=== PATIENT | female | born 1965 | race Caucasian/White ===

== ENCOUNTER 2016-08-30 18:28 | Inpatient (IN) ==
[2016-08-30] MEDS ORDERED: ONDANSETRON 4 MG/2 ML VIAL IV STA (19:43)
[2016-08-30] MEDS ORDERED: ASPIRIN 325 MG TABLET PO STA (19:43)
[2016-08-30] MEDS ORDERED: ALUM/MAG/SIMETH/LIDO VISC 1:1 30 ML BOTTLE PO STA (19:43)
[2016-08-30] MEDS ORDERED: NITROGLYCERIN 2% OINT 1 INCH/GM PACK TOP STA (19:43)
[2016-08-30] MEDS ORDERED: MORPHINE 2 MG/1 ML SYRINGE IV STA (19:43)
[2016-08-30] MEDS ORDERED: METOPROLOL TARTRATE 5 MG/5 ML VIAL IV STA (19:43)
--- NOTE | 2016-08-30 19:48 | EKG Report ---
Stationary ECG Study [facility] ER Test Date: 08/30/2016 6:46:02 PM Pat Name: NICOLAS GONZALES Department: Room: Gender: F Crisis Therapist: Kit : 1965 Requested by: Miguelangel Sanchez Order Number: [id number] Reading MD: DELLA SCHMIDT Intervals [place] Rate: 80 P: 53 [place]: 147 QRS: 61 QRSD: 101 T: 85 QT: 392 QTc: 428 Interpretive Statements SINUS RHYTHM NONSPECIFIC T WAVE ABNORMALITY Electronically Signed On 08-30-16 23:31:43 MUSIC CRITIC by DELLA SCHMIDT [email or web address]
[2016-08-30] MEDS ORDERED: METOPROLOL TARTRATE 5 MG/5 ML VIAL IV ONE (19:51)
[2016-08-30] MEDS ORDERED: MORPHINE 2 MG/1 ML SYRINGE ONE (19:51)
[2016-08-30] MEDS ORDERED: ONDANSETRON 4 MG/2 ML VIAL ONE (19:51)
[2016-08-30] MEDS ORDERED: NITROGLYCERIN 2% OINT 1 INCH/GM PACK TOP ONE (19:51)
[2016-08-30] MEDS ORDERED: ALUM/MAG/SIMETH/LIDO VISC 1:1 30 ML BOTTLE PO ONE (19:52)
[2016-08-30 20:03] LABS: Basophils # 0.1 10*3/uL (0.0-0.2); Basophils % 0.4 % (0.0-0.8); Eosinophils # 0.5 10*3/uL (0.0-0.87); Eosinophils % 3.4 % (0.00-10.9); Hematocrit 41.4 VOL% (35.7-47.0); Hemoglobin 13.6 GM/DL (12.0-16.0); Immature Granulocytes % 0.3 %; Immature Granulocytes Absolute 0.04 #; Lymphocytes # 5.9 10*3/uL (1.4-4.0); Lymphocytes % 39.3 % (21.3-54.2); Mean Corpuscular HGB Conc 32.9 GM/DL (32-36); Mean Corpuscular Hemoglobin 28 PG (27-34); Mean Corpuscular Volume 86.3 FL (87-102); Mean Platelet Volume 11.2 FL (9.6-12.0); Monocytes # 1.1 10*3/uL (0.11-0.8); Monocytes % 7.5 % (1.7-12.7); Neutrophils # 7.4 10*3/uL (1.4-7.4); Neutrophils % 49.1 % (38.7-73.9); Platelet Count 604 T/CUMM (130-400); Red Cell Distribution Width 14.5 % (9.3-17.3)
[2016-08-30 20:16] LABS: D-Dimer <= 0.5 MG/L FEU
[2016-08-30 20:30] LABS: Alanine Aminotransferase 36 U/L (13-56); Albumin 4.1 G/DL (3.4-5.0); Alkaline Phosphatase 115 U/L (45-117); Aspartate Amino Transferase 28 U/L (0-37); Bilirubin,Total < 0.39 MG/DL (0.2-1.0); Blood Urea Nitrogen 17 MG/DL (7-18); Calcium 9.1 MG/DL (8.5-10.1); Glucose 158 MG/DL (74-106); Magnesium 1.9 MG/DL (1.8-2.4); Osmolality,Calculated 287.1 MOS/KG (273-304); Potassium 3.8 MMOL/L (3.5-5.1); Sodium 142 MMOL/L (136-145); Total Protein 8.4 G/DL (6.4-8.3)
[2016-08-30 20:42] LABS: Apearance,Urine CLEAR (Clear); Bilirubin,Urine Negative (Negative); Blood, Urine Negative (Negative); Glucose,Urine (UA) Negative (Negative); Ketones,Urine Negative (Negative); Nitrite,Urine Negative (Negative); Protein,Urine Negative; RBC,Urine <1 /HPF (0-4); Squamous Epithelial Cell,Urine Occasional /HPF (0-10); Urine Color Straw (Yellow); Urine Specific Gravity 1.005 (1.001-1.035); Urine Urobilinogen < 2.0 EU/DL (0.2-1.0); WBC,Urine 1 /HPF (0-6)
--- NOTE | 2016-08-30 20:43 | Emergency Department Note ---
Baldev Jackson Brittany, am scribing for, and in the presence of, Miguelangel Li MD 19:47. Guillermo Jackson Charles R, MD, personally performed the services described in this documentation, ascribed by Marichuy De Paz in my presence, and it is both accurate and complete . Arrival - Arrival Chief Complaint: Chest Pain Stated Complaint: CHEST PAINS ED Nursing Triage Note: C/O intermittent CP starting 0200 this am and has gotten progressively worse. Pt also reports Nausea, vomiting and SOB. Pt is followed by Dr. Parker. Mode of Arrival: Ambulatory Limitations: No Limitations Source: Patient, RN Notes Reviewed Time Seen by Provider: 08/30/16 19:08 - History of Present Illness HPI Narrative: Patient is a 51 y/o white female presenting to the ED with c/o chest pain with an onset of 0200 this morning. Patient describes chest pain as an intermittent dull-sharp in quality. She reports that around 1500 this evening while driving home pain onset once again, worse than this morning and more pressure-like. Patient states that pain has onset at times of rest, not so much upon exertion. Patient denies orthopnea, but reports that upon laying in bed chest pain is "like heaviness." She notes having some associated shortness of breath that is intermittent and occurring upon exertion, never at the same time as chest pain. She denies having any neck pain or near syncopal episodes with this. 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 She states that Dr. Parker informed her she might have a slight heart murmur. Patient reports that she takes Protonix everyday for Gastric Ulcer, denies any history of GI bleed from this. She has no other complaint. Onset (ago): hour(s) Consistency: intermittent Severity: moderate Severity scale (1-10): 7 Quality: sharp, dull Allergies/Adverse Reactions: Allergies Allergy/AdvReac Type Severity Reaction Status Date / Time prochlorperazine Allergy Unknown Unknown/Unable Verified 08/30/16 18:38 [From Compazine] to obtain Nutmeg AdvReac ANAPHYLAXIS Verified 08/30/16 18:38 Home Medications: Home Medications Medication Instructions Recorded Confirmed Type Pantoprazole Tab [Protonix Tab] 40 mg PO BID 08/02/16 08/02/16 History Triamterene/Hctz 37.5-25 Cap 1 capsule PO DAILY 08/02/16 08/02/16 History [Dyazide] Black Cohosh 40 mg PO DAILY 08/06/16 08/06/16 History Meloxicam [Mobic] 15 mg PO DAILY 08/06/16 08/06/16 History Tizanidine HCl 4 mg PO DAILY 08/06/16 08/06/16 History metFORMIN [Glucophage] 250 mg PO BID W/MEALS 08/06/16 08/06/16 History Review of System - Review of System 12 point system: reviewed and no additional remarkable complaints except as stated - Review of System Respiratory: Present: respiratory distress Cardiovascular: Present: chest pain Medical,Surgical,& Family Hx - Medical History Neurology: No history of: Seizures HEENT: History of: Eye Problem Endocrine: History of: Diabetes Mellitus (NIDDM) Gastrointestinal: History of: Bowel Obstruction, GI Problems (ulcer...years ago..taking protonix) Musculoskeletal: History of: Musculoskeletal Problems Hematology: History of: Blood Transfusion Reaction - Surgical History Cardiac Surgeries: Patient Denies: Cardiac Catheterization HEENT Surgeries: Surgical HX of: Tonsilectomy & Adenoidectomy Patient denies: Eye Surgery Abdominal Surgeries: Surgical HX of: Appendectomy, Cholecystectomy, EGD Reproductive Surgeries: Surgical HX of;: Hysterectomy Orthopedic Surgeries: Surgical HX of;: Orthopedic Surgery (torn labien on right shoulder) - Family History Family History: Reports;: Family Diabetes (Maternal grandmother, both parents, siblings), Family Heart Disease (grandfatehr), Family Hypertension (parents), Family Stroke (stroke, mother, grandmother) Comment Only: Family Cancer (uncle and aunt on father's side) - Social History Smoking Status: Never smoker Frequency of Alcohol Use: None Type of Drug Use: None Exam Vital Signs: Vital Signs Temperature 97 F L 08/30/16 18:38 Pulse Rate 67 08/30/16 21:43 Respiratory Rate 20 08/30/16 21:43 Blood Pressure 129/77 08/30/16 21:43 O2 Sat by Pulse Oximetry 98 08/30/16 21:43 - General General appearance: alert, in no apparent distress - Head Head exam: Present: atraumatic, normocephalic - Eye Eye exam: Present: normal appearance, PERRL, EOMI - ENT ENT exam: Present: normal oropharynx, mucous membranes moist, TM's normal bilaterally - Neck Neck exam: Present: normal inspection, full ROM, trachea midline - Chest Chest inspection: Present: normal inspection, symmetric chest wall rise - Respiratory Respiratory exam: Present: normal lung sounds bilaterally. Absent: rales, rhonchi, wheezes - Cardiovascular Cardiovascular exam: Present: regular rate, normal rhythm, normal heart sounds. Absent: murmur, rubs, gallop - Abdominal Exam Abdominal exam: Present: soft, hyperactive bowel sounds, other (epigastric fullness to palpation). Absent: distention, tenderness, normal bowel sounds - Extremities Exam Extremities exam: Present: full ROM, pedal edema (+1) - Back Exam Back exam: Present: normal inspection, full ROM - Neurological Exam Neurological exam: Present: alert, oriented X3, CN II-XII intact. Absent: motor sensory deficit - Psychiatric Psychiatric exam: Present: normal affect, normal mood - Skin Skin exam: Present: warm, dry Course - Consultations Consultation #1: Dr. Benz will mid patient for Dr. Urban Time: 22:13 Results - Labs CBC & BMP: 08/30/16 19:09 08/30/16 19:09 Lab Results: I have reviewed the patients labs Labs: Laboratory Tests 08/30/16 08/30/16 08/30/16 19:09 19:09 19:09 WBC RBC Hgb Hct MCV MCH MCHC RDW Plt Count MPV Neut % (Auto) Lymph % (Auto) [place] % (Auto) Eos % (Auto) Baso % (Auto) Neut # (Auto) Lymph # (Auto) [place] # (Auto) Eos # (Auto) Baso # (Auto) Immature Gran % Nucleated RBC % Immature Gran # Nucleated RBCs # INR 1.0 PT Patient/Control Mix 10.0 D-Dimer, Quantitative <= 0.5 Sodium 142 Potassium 3.8 Chloride 104 Carbon Dioxide 25 Anion Gap 16.8 H BUN 17 Creatinine 1.00 GFR Calculation 64 BUN/Creatinine Ratio 17.00 Glucose 158 H Calculated Osmolality 287.1 Calcium 9.1 Magnesium 1.9 Total Bilirubin < 0.39 AST 28 ALT 36 Alkaline Phosphatase 115 Troponin I B-Natriuretic Peptide 4 Total Protein 8.4 H Albumin 4.1 Globulin 4.3 H Albumin/Globulin Ratio 0.9 L Lipase 284.0 Urine Color Urine Appearance Urine pH Ur Specific [place] Urine Protein Urine Glucose (UA) Urine Ketones Urine Blood Urine Nitrate Urine Bilirubin Urine Urobilinogen Urine Leukocytes Urine RBC Urine WBC Ur Squamous Epith Cells 08/30/16 08/30/16 08/30/16 19:09 19:09 19:09 WBC 15.0 H D RBC 4.80 Hgb 13.6 Hct 41.4 MCV 86.3 L MCH 28 MCHC 32.9 RDW 14.5 Plt Count 604 H D MPV 11.2 Neut % (Auto) 49.1 Lymph % (Auto) 39.3 [place] % (Auto) 7.5 Eos % (Auto) 3.4 Baso % (Auto) 0.4 Neut # (Auto) 7.4 Lymph # (Auto) 5.9 H [place] # (Auto) 1.1 H Eos # (Auto) 0.5 Baso # (Auto) 0.1 Immature Gran % 0.3 Nucleated RBC % 0.0 Immature Gran # 0.04 Nucleated RBCs # 0.00 INR PT Patient/Control Mix D-Dimer, Quantitative Sodium Potassium Chloride Carbon Dioxide Anion Gap BUN Creatinine GFR Calculation BUN/Creatinine Ratio Glucose Calculated Osmolality Calcium Magnesium Total Bilirubin AST ALT Alkaline Phosphatase Troponin I < 0.015 B-Natriuretic Peptide Total Protein Albumin Globulin Albumin/Globulin Ratio Lipase Urine Color Straw Urine Appearance Clear Urine pH 5.0 Ur Specific [place] 1.005 Urine Protein Negative Urine Glucose (UA) Negative Urine Ketones Negative Urine Blood Negative Urine Nitrate Negative Urine Bilirubin Negative Urine Urobilinogen < 2.0 H Urine Leukocytes Negative Urine RBC <1 Urine WBC 1 Ur Squamous Epith Cells Occasional - Diagnostic Findings Procedure: Chest x-ray: report reviewed by me (Minimal patchy right basilar opacities, may represent atelectasis although developing infectious/ inflammatory infiltrates are not excluded.) Disposition Clinical Impression: Atypical chest pain Case discussed with: patient, patient's family Disposition: Still a Patient Condition: Stable Time of Disposition: 22:13
--- NOTE | 2016-08-30 21:09 | XRay Report ---
Exam: XR chest 1V portable Indication: Chest pain Comparison study: None Findings: The heart, mediastinum, and bony structures are within normal limits. Elevation of left hemidiaphragm is noted. There is also minimal opacity within the right lung base, which is nonspecific. There is no pneumothorax or pleural effusion identified. Impression: Minimal patchy right basilar opacities may represent atelectasis although developing infectious/inflammatory infiltrates are not excluded. PROCEDURE INTERPRETED AT [facility] DEPARTMENT OF RADIOLOGY Final Report Signed by: Jamal Boykin
[2016-08-30] MEDS ORDERED: MAGNESIUM SULF RIDER 4 GM in PREMIX 1 EACH IV PRN (23:17)
[2016-08-30] MEDS ORDERED: MAGNESIUM SULF RIDER 2 GM in PREMIX 1 EACH IV PRN (23:17)
[2016-08-30] MEDS ORDERED: ONDANSETRON 4 MG/2 ML VIAL IV PRN (23:17)
[2016-08-30] MEDS ORDERED: POTASSIUM CHLORIDE 20 MEQ TABLET PO PRN (23:17)
[2016-08-30] MEDS ORDERED: LACTULOSE 20 GM/30 ML UDCUP PO PRN (23:17)
[2016-08-30] MEDS ORDERED: MORPHINE 2 MG/1 ML SYRINGE IV PRN (23:17)
[2016-08-30] MEDS: ENOXAPARIN 100 MG/ML SYRINGE SUBCUT SCH (23:37)
[2016-08-30] MEDS: SODIUM CHLORIDE 0.9% 1,000 ML IV SCH (23:38)
[2016-08-31] MEDS: NITROGLYCERIN 2% OINT 1 INCH/GM PACK TOP SCH ×4 (01:40→18:10)
[2016-08-31 03:41] LABS: Basophils # 0.1 10*3/uL (0.0-0.2); Basophils % 0.4 % (0.0-0.8); Eosinophils # 0.4 10*3/uL (0.0-0.87); Eosinophils % 2.9 % (0.00-10.9); Hematocrit 40.5 VOL% (35.7-47.0); Immature Granulocytes % 0.2 %; Immature Granulocytes Absolute 0.02 #; Lymphocytes # 5.3 10*3/uL (1.4-4.0); Lymphocytes % 42.4 % (21.3-54.2); Mean Corpuscular HGB Conc 32.1 GM/DL (32-36); Mean Corpuscular Hemoglobin 28 PG (27-34); Mean Corpuscular Volume 87.3 FL (87-102); Mean Platelet Volume 13.1 FL (9.6-12.0); Monocytes # 0.9 10*3/uL (0.11-0.8); Monocytes % 7.5 % (1.7-12.7); Neutrophils # 5.8 10*3/uL (1.4-7.4); Neutrophils % 46.6 % (38.7-73.9); Platelet Count 308 T/CUMM (130-400); Red Blood Count 4.64 MC/CUMM (3.8-5.5); Red Cell Distribution Width 14.9 % (9.3-17.3); White Blood Count 12.5 T/CUMM (4-12)
[2016-08-31 04:26] LABS: Bilirubin,Total 0.9 MG/DL (0.2-1.0); Calcium 9.3 MG/DL (8.5-10.1); Total Protein 7.4 G/DL (6.4-8.3)
[2016-08-31 04:27] LABS: Osmolality,Calculated 284.1 MOS/KG (273-304); Potassium 4.6 MMOL/L (3.5-5.1); Risk Ratio 4.21; Thyroid Stimulating Hormone 2.85 uIU/ml (0.358-3.74); VLDL CHOLESTEROL 23.4 MG/DL
--- NOTE | 2016-08-31 07:46 | XRay Report ---
XR chest 1V portable Indication: Shortness of breath Comparison: 30 August 2016 Findings: The heart and mediastinum are stable in size and configuration. Left hemidiaphragm is elevated, similar to previous exam The pulmonary vascularity is normal in caliber. No lung infiltrates, effusions, pneumothorax or other abnormality is demonstrated. Impression: No acute findings are significant changes. PROCEDURE INTERPRETED AT [facility] DEPARTMENT OF RADIOLOGY Final Report Signed by: Dr. Rex Green
[2016-08-31 08:52] LABS: Alanine Aminotransferase 33 U/L (13-56); Albumin 3.6 G/DL (3.4-5.0); Alkaline Phosphatase 100 U/L (45-117); Amylase 48 U/L (25-115); Aspartate Amino Transferase 21 U/L (0-37); Bilirubin,Direct 0.1 MG/DL (0.0-0.20); Bilirubin,Indirect 0.3 MG/DL (0.0-1.0); Bilirubin,Total < 0.39 MG/DL (0.2-1.0); Total Protein 6.7 G/DL (6.4-8.3)
[2016-08-31] MEDS ORDERED: PANTOPRAZOLE 40 MG TABLET PO SCH (09:00)
[2016-08-31] MEDS ORDERED: ASPIRIN EC 81 MG TABLET PO SCH (09:00)
--- NOTE | 2016-08-31 09:12 | EKG Report ---
Stationary ECG Study [facility] ER Test Date: 08/30/2016 10:57:20 PM Pat Name: NICOLAS GONZALES Department: Room: 295 Gender: F Licensed Weigher: : 1965 Requested by: Miguelangel Sanchez Order Number: [id number] Reading MD: DELLA SCHMIDT Intervals [place] Rate: 68 P: 37 [place]: 155 QRS: 81 QRSD: 99 T: 63 QT: 430 QTc: 447 Interpretive Statements SINUS RHYTHM NONSPECIFIC T-WAVE ABNORMALITY Electronically Signed On 08-31-16 22:21:27 TAFFY CANDY MAKER by DELLA SCHMIDT [email or web address]
--- NOTE | 2016-08-31 10:09 | Gastrointestinal Consult Note ---
Assessment and Plan (1) Atypical chest pain Status: Acute Assessment and plan: The patient states that she does not feel that this is necessarily GI related as it is different from her previous esophagitis type pain. It has partially responded to nitroglycerin and this may represent esophageal spasm versus true coronary artery disease or unstable angina or perhaps even reflux that we might be able to see if there is esophagitis present. We will proceed with upper endoscopy as this is certainly less invasive than cardiac catheterization. The patient points out that she did have some arrhythmias when she had her colonoscopy recently and that this may be related to her current complaints. She is on telemetry monitoring now but may need a cardiac event monitor if nothing can be found from a GI standpoint and her catheterization is negative. Current Visit: Yes (2) Rizvi's esophagus determined by biopsy Status: Acute Assessment and plan: While this is been seen on previous upper endoscopy back in July 2013 it was not seen on follow-up endoscopy March 2014. We will certainly look for Rizvi's again during today's exam. If present she will need repeat upper endoscopy in 3 years to look for further dysplasia. Current Visit: Yes (3) Esophagitis determined by biopsy Status: Acute Assessment and plan: This patient has had a history of atypical chest pain sometimes up to a 4 out of 10 in intensity in the past but states this was normally a burning for her and not necessarily sharp stabbing. We will look for further esophagitis as this is been found on prior endoscopies. She is only on Protonix once daily taken in the morning time despite my recommendations take this prior to supper. We will leave her prescription to use this twice daily at least for the next several months. If she redevelops atypical chest pain off of the twice daily dosing we can certainly continue this indefinitely. Current Visit: Yes (4) Personal history of colonic polyps Status: Acute Assessment and plan: The patient does have a history of hyperplastic polyps discovered on her most recent colonoscopy July 2016 one month ago, she does not need a repeat colonoscopy until July 2026. Current Visit: Yes History of Present Illness Chief complaint: Atypical chest pain, different from reflux induced pain by report History of present illness: Ms. Hampton is a 51 year old female who has been seen by me on multiple occasions since March 2014. Mai does have a history of atypical chest pain which is previously required treatment with Protonix 40 mg twice daily. She has since cut this back to 40 mg in the morning time. She is previously undergone upper endoscopy back in July 2013 demonstrating a 1.5 cm ulcer in the prepyloric regions. She was noted to have Rizvi's esophagus at that time and has been treated with proton pump inhibition since then, a repeat upper endoscopy done in 03/12/14 demonstrated complete healing of this ulcer no Helicobacter pylori and Rizvi's was not present at that time indicating a reversal of this condition. She is always had mildly elevated liver function tests and had previously undergone cholecystectomy by Dr. Rosario on 08/22/13, this was followed by a intraoperative cholangiogram which demonstrated normal flow into the duodenum and did not demonstrate any residual stones--the pathology on this was chronic cholecystitis. Mai also undergone a colonoscopy as recently as 08/06/16 with a single rectal polyp that was removed by hot biopsy that proved to be hyperplastic. The patient will not require repeat colonoscopy for 10 years. The patient presented this admission with an atypical chest pain that has been going on for several days she does have a family history of coronary artery disease and is a previous smoker but discontinued this in 1986. She mentions that this pain is a bit different from the previous atypical chest pain insofar as has more of a stabbing sensation as opposed to burning. She states that it exacerbates and remits sometimes up to 10 out of 10 in intensity and has been improved with the use of nitroglycerin. At present it is not hurting her at all. She states that this has not previously been associated with increase in exercise but more recently with her last Suleiman class she did notice a correlation with worsening "indigestion". The patient's white blood cell count was noted to be 15 on admission and this is dropped back to 12.5 today. Her hematocrit is 40.5 with a hemoglobin of 13.0. Liver function tests at this time are completely within normal limits. Troponin levels appear completely negative as well. Because the weekend is coming up, we will take the patient immediately to endoscopy to answer the question as to whether there is worsened esophagitis from prior scope in March 2014 to explain her current complaints. Home Medications Medication Instructions Recorded Confirmed Type Pantoprazole Tab [Protonix Tab] 40 mg PO BID 08/02/16 08/30/16 History Triamterene/Hctz 37.5-25 Cap 1 capsule PO DAILY 08/02/16 08/30/16 History [Dyazide] Black Cohosh 540 mg PO DAILY 08/06/16 08/30/16 History Meloxicam [Mobic] 15 mg PO DAILY W/BREAKFAST 08/06/16 08/30/16 History Tizanidine HCl 4 mg PO BEDTIME 08/06/16 08/30/16 History metFORMIN [Glucophage] 500 mg PO BID W/MEALS 08/06/16 08/30/16 History Aspirin [Ecotrin] 81 mg PO DAILY 08/30/16 08/30/16 History Losartan [Cozaar] 25 mg PO DAILY 08/30/16 08/30/16 History Simvastatin 40 mg PO DAILY@1700 08/30/16 08/30/16 History cycloSPORINE OPH EMUL [Restasis] 1 drop BOTH EYES BID 08/30/16 08/30/16 History Allergies Allergy/AdvReac Type Severity Reaction Status Date / Time prochlorperazine Allergy Unknown Unknown/Unable Verified 08/30/16 18:38 [From Compazine] to obtain Nutmeg AdvReac ANAPHYLAXIS Verified 08/30/16 18:38 Medical,Surgical,& Family Hx - Medical History Neurology: No history of: Seizures HEENT: History of: Eye Problem Endocrine: History of: Diabetes Mellitus (NIDDM) Gastrointestinal: History of: Bowel Obstruction, GI Problems (ulcer...years ago..taking protonix) Musculoskeletal: History of: Musculoskeletal Problems Hematology: History of: Blood Transfusion Reaction - Surgical History Cardiac Surgeries: Patient Denies: Cardiac Catheterization HEENT Surgeries: Surgical HX of: Tonsilectomy & Adenoidectomy Patient denies: Eye Surgery Abdominal Surgeries: Surgical HX of: Appendectomy, Cholecystectomy, EGD Reproductive Surgeries: Surgical HX of;: Hysterectomy Orthopedic Surgeries: Surgical HX of;: Orthopedic Surgery (torn labien on right shoulder) - Family History Family History: Reports;: Family Diabetes (Maternal grandmother, both parents, siblings), Family Heart Disease (grandfatehr), Family Hypertension (parents), Family Stroke (stroke, mother, grandmother) Comment Only: Family Cancer (uncle and aunt on father's side) - Social History Smoking Status: Former smoker Frequency of Alcohol Use: None Type of Drug Use: None Review of systems: Constitutional: Denies fever, chills, mild nausea but no vomiting Eyes: Denies dry eyes, and scleral icterus HENT: Denies headaches Cardiovascular: Patient does complain of some recent acute chest pain but no claudication Respiratory: Denies shortness of breath, wheezing, and difficulty breathing, denies cough Gastrointestinal: As noted in the HPI Genitourinary: Denies dysuria and hematuria Neurologic: Denies vision loss, and loss of sensation Musculoskeletal: Denies joint swelling, joint stiffness, and muscular weakness Psychiatric: Denies depression and mil symptoms Heme-Lymph: Denies easy bruising, lymph node enlargement or tenderness, night sweats, excessive bleeding Allergies-immunologic: Denies pruritus and rhinorrhea Exam - Constitutional Vitals: Period Temp Pulse Resp BP Sys/Cook Pulse Ox Last 24 Hr 97.2 F-98.8 F 65-77 16-18 104-124/57-71 94-95 General appearance: no acute distress - Head Head exam: Present: normocephalic, atraumatic - Eye Eye exam: Present: EOMI Pupils: Present: YODIT - Respiratory Respiratory exam: Present: clear to auscultation bilaterally - Cardiovascular Cardiovascular exam: Present: regular rate and rhythm, systolic murmur - GI/Abdominal GI/Abdominal exam: Present: normal bowel sounds, soft. Absent: distended, guarding, tenderness, rebound - Extremities Exam Extremities exam: Absent: edema - Neurological Exam Neurological exam: Present: alert, oriented X3, CN II-XII intact. Absent: motor sensory deficit - Psychiatric Psychiatric exam: Present: normal affect, normal mood - Skin Skin exam: Present: warm Results - Labs CBC & BMP: 08/31/16 02:10 08/31/16 02:10
[2016-08-31] MEDS ORDERED: LIDOCAINE 100 MG/5 ML SYRINGE ONE (10:37)
[2016-08-31] MEDS ORDERED: PROPOFOL 200 MG/20 ML VIAL IV ONE (10:37)
--- NOTE | 2016-08-31 11:00 | Operative Note ---
Date of procedure: 08/31/16 Pre-op diagnosis: Atypical chest pain, history of Rizvi's, prior ulcers, positive Mobic use Post-op diagnosis: other (9 mm gastric ulcer thought secondary to Mobic use. There was a large amount of retained vegetable matter in the stomach consistent with phytobezoar/gastroparesis. 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 Frantz Viera MD INDICATIONS: This is a patient who has a prior history of atypical chest pain , esophagitis, and Rizvi's esophagus--who has been having several days of a different character to the pain, improvement on nitroglycerin, upper endoscopy to look for further Rizvi's/pill esophagitis/esophagitis. The prior H&P was reviewed and interrim changes are as noted: No change from GI consultation today ENDOSCOPIST: Murphy Polanco MD ENDOSCOPE: Olympus Video 100 System upper endoscope ASA CLASS: 3 EXAM: CV: regular rate and rhythm respiratory: Clear without wheezes abdominal: active bowel sounds MEDICATION: Per nursing anesthesia protocol, see their notes PROCEDURE: After discussion of the potential risks and benefits of upper endoscopy, the informed consent was obtained. The patient was then placed in the left lateral decubitus position where sedation was achieved as noted above. Esophageal intubation was performed without difficulty, and the endoscope was advanced through the esophagus, stomach and duodenum. A slow withdrawal was then performed with retroflexion in the stomach for careful inspection of the incisura angularis, fundus and cardia. The scope was then returned to a neutral position and withdrawn through the esophagus. The patient tolerated the procedure well and without complication. BIOPSIES: gastric antrum/body PHOTOGRAPHS: Obtained FINDINGS: Hypopharynx and Larynx: Normal Esohagoscopy Upper and middle thirds: Normal Lower third large pulsion diverticulum noted Esophogastric junctions: There did appear to be a 2 cm tongue of Rizvi 's here that was biopsied. Gastroscopy: Cardia/Fundus: 1 cm hiatal hernia, large amount of retained vegetable matter consistent with phytobezoar Body: A large amount of retained food in the stomach consistent with phytobezoar, mild surrounding stasis gastritis, biopsied Antrum and pylorus there was a prepyloric gastric ulcer 9 mm in size, margins biopsied, a large amount of retained food was noted here making it impossible to find the pyloric channel Duodenoscopy: Bulb not seen Second and third portions: Not seen IMPRESSION: 9 mm gastric ulcer thought secondary to Mobic use. There was a large amount of retained vegetable matter in the stomach consistent with phytobezoar/gastroparesis. 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 RECOMMENDATIONS: Follow up for biopsy results in 1-2 weeks by phone [phone] Continue anti-gastroesophageal reflux measures (avoid carbonated and acidic beverages, avoid eating within 2 hours of bedtime, avoid tight fitting clothing , and elevate the front bed posts 6 inches prior to sleeping. Stop Mobic Resume use of Protonix 40 mg twice daily We will schedule for a gastric emptying study tomorrow to look and see if there is quantifiable evidence of poor stomach emptying. Murphy Polanco MD COPY TO: Dr. Frantz Viera MD Anesthesia: MAC Surgeon / Physician: Murphy Polacno Estimated blood loss: minimal Specimens: other (Gastric antrum/body/ulcer margin) Condition: stable Disposition: post procedure unit (G.I. Suite) Results - Labs CBC & BMP: 08/31/16 02:10 08/31/16 02:10 Discharge Plan - Discharge Medications No Action Triamterene/Hctz 37.5-25 Cap [Dyazide] 1 capsule PO DAILY metFORMIN [Glucophage] 500 mg PO BID W/MEALS Meloxicam [Mobic] 15 mg PO DAILY W/BREAKFAST Tizanidine HCl 4 mg PO BEDTIME Aspirin [Ecotrin] 81 mg PO DAILY Losartan [Cozaar] 25 mg PO DAILY Simvastatin 40 mg PO DAILY@1700 cycloSPORINE OPH EMUL [Restasis] 1 drop BOTH EYES BID Pantoprazole Tab [Protonix Tab] 40 mg PO BID Black Cohosh 540 mg PO DAILY - Follow Up or Referral - Forms/Instructions
--- NOTE | 2016-08-31 11:28 | Anesthesia ---
Anesthesia Post OP - Post Ansesthetic Evaluation Patient seen in post op: Yes Resp: within normal limits CV: within normal limits Mental: within normal limits Temp: within normal limits [id number]: within normal limits Nausea and Vomiting: within normal limits Pain: within normal limits
--- NOTE | 2016-08-31 11:42 | Cardiology History & Physical ---
Manuel, Rhiannon Calvillo RN, am scribing for, and in the presence of, Wilton Viera MD 11:39. Assessment and Plan (1) Atypical chest pain Status: Acute Assessment and plan: 59-year-old female without known coronary artery disease presents for further evaluation of chest pain. She has a history of diabetes, hyperlipidemia , hypertension, and gastric ulcer. She is also a former smoker, reports that she quit in 1996. -The pain is not typical for cardiac origin. I suspect GI. Will get GI consult. -Blood pressure is well controlled. Continue current regimen -Hyperlipidemia, continue statin. -Has diabetes, sugars are controlled. -I would hold off adding aspirin, until acute GI pathology ruled out -dvt ppx. ppi Current Visit: Yes (2) Hypertension Status: Chronic Current Visit: Yes (3) Hyperlipidemia Status: Chronic Current Visit: Yes (4) Diabetes Status: Chronic Current Visit: Yes (5) Former smoker Status: Chronic Current Visit: Yes History of Present Illness Chief complaint: Chest pain History of present illness: Ms. Hampton is a 51 year old female without known coronary artery disease, routinely followed by Dr. Parker. Her primary care provider is Dr. Montgomery. She presented to the ER yesterday for further evaluation of chest pain. She has resector significant for diabetes, hyperlipidemia, hypertension, family history of coronary artery disease and former smoker (reports that she quit in 1986). She has a past medical history of gastric ulcer approximately 3 years ago. She has no significant cardiac surgical history. She has never had a heart catheterization. She saw Dr. Urban for the first time Saturday for evaluation of chest pain. She underwent echo, stress test and EKG at that time. After reviewing [facility] records, her echo revealed normal LV size and function with an ejection fraction of 65%, grade 1 diastolic dysfunction, mild LVH, mild MR, trace pulmonic regurgitation and mild TR. Her cardiac stress test revealed a normal stress EKG. Upsloping ST depression was noted in lead 2 , lead 3, aVF and V6 with a rapid normalization during recovery. Dr. Parker started patient on Cozaar and Lipitor on Saturday. Patient was in her usual state of health until yesterday when she began to experience nonradiating chest discomfort around 3 AM. She reports that this woke her up from sleep. This lasted a couple of hours. She describes this pain as a pressure, squeezing type pain. After this pain resolved, she decided to go on to work. She did not have any further symptoms until around 3 PM when she began to develop an aching chest pain. She reports that this lasted approximately 1 hour and was then resolved. She is unable to identify any aggravating or alleviating factors at this time. She reports that she was resting when this pain started and was not made worse with activity. Her chest pain is also associated with nausea. She denies shortness of breath, palpitations, and lightheadedness. Around 6 PM, on her way home from work she developed chest pain again. This increasingly got worse since she reported to the ER at that time. She received nitro in the ER. She reports that this made her chest pain a little better. The patient was admitted to cardiology's service and housed on telemetry for further evaluation. Patient denies fever, chills, cough, chest pain with inspiration, abdominal pain, melena, chest pain that is worse after eating, orthopnea, PND, dysuria and lower extremity edema. Of note, patient does report that she has noticed that she has been more short of breath this week. She tells me that she has noticed this mostly while she is at work walking around the hospital. She also tells me that she attended a [employer] exercise class on Saturday and she did not experience any chest discomfort or shortness of breath during that class. Patient was seen and examined on telemetry. She has currently in no acute distress and not requiring oxygen. She reports that she is currently chest pain free and not experiencing shortness of breath. Her troponin has been negative 3 checks. Her EKG does not reveal any acute findings and is unchanged from previous EKG. Her white blood cell count is noted to be 12.5 with a neutrophil percentage of 13.1. Her chest x-ray revealed minimal patchy right basilar opacities and developing infectious infiltrates could not be excluded. She is afrebrile and without cough and chills. Will consult gi at this time for further evaluation of patient's discomfort. Will keep patient NPO until GI sees patient. Home Medications Medication Instructions Recorded Confirmed Type Pantoprazole Tab [Protonix Tab] 40 mg PO BID 08/02/16 08/30/16 History Triamterene/Hctz 37.5-25 Cap 1 capsule PO DAILY 08/02/16 08/30/16 History [Dyazide] Black Cohosh 540 mg PO DAILY 08/06/16 08/30/16 History Meloxicam [Mobic] 15 mg PO DAILY W/BREAKFAST 08/06/16 08/30/16 History Tizanidine HCl 4 mg PO BEDTIME 08/06/16 08/30/16 History metFORMIN [Glucophage] 500 mg PO BID W/MEALS 08/06/16 08/30/16 History Aspirin [Ecotrin] 81 mg PO DAILY 08/30/16 08/30/16 History Losartan [Cozaar] 25 mg PO DAILY 08/30/16 08/30/16 History Simvastatin 40 mg PO DAILY@1700 08/30/16 08/30/16 History cycloSPORINE OPH EMUL [Restasis] 1 drop BOTH EYES BID 08/30/16 08/30/16 History Allergies Allergy/AdvReac Type Severity Reaction Status Date / Time prochlorperazine Allergy Unknown Unknown/Unable Verified 08/30/16 18:38 [From Compazine] to obtain Nutmeg AdvReac ANAPHYLAXIS Verified 08/30/16 18:38 12 point system: reviewed and no additional remarkable complaints except as stated - Constitutional Constitutional: Present: fatigue. Absent: chills, excessive sweating, fever(s) , frequent falls, headache(s), malaise, night sweats, weakness, weight gain, weight loss - EENT Nose, mouth and throat: Absent: headache(s), hoarseness, sinus pressure, sore throat - Cardiovascular Cardiovascular: Present: as per HPI, chest pain at rest, dyspnea on exertion. Absent: claudication, diaphoresis, edema, radiating jaw, neck or arm pain, lightheadedness, orthopnea, palpitations, PND - Respiratory Respiratory: Present: dyspnea on exertion. Absent: cough, wheezing, snoring, pain on inspiration, change in phlegm color - Gastrointestinal Gastrointestinal: Present: heartburn, nausea. Absent: abdominal pain, change in bowel habits, coffee ground emesis, diarrhea, hematemesis, hematochezia, loose stools, melena, vomiting - Genitourinary Genitourinary: Absent: dysuria, flank pain, hematuria, urinary frequency, urinary hesitancy - Neurological Neurological: Absent: disequilibrium, dizziness, frequent falls, headache(s), numbness, syncope - Psychiatric Psychiatric: Absent: anxiety, depression, panic attacks - Hematologic/Lymphatic Hematologic/Lymphatic: Absent: easy bleeding, easy bruising, lymphadenopathy Medical,Surgical,& Family Hx - Medical History Cardio: History of: Hypertension, Valvular Heart Disease (Mild MR) No history of: CAD Neurology: No history of: Seizures, TIA Endocrine: History of: Diabetes Mellitus (NIDDM), Dyslipidemia Gastrointestinal: History of: GI Problems (Gastric ulcer approximately 3 years ago) Musculoskeletal: History of: Musculoskeletal Problems - Surgical History Cardiac Surgeries: Patient Denies: Cardiac Catheterization, Cardiac Surgery HEENT Surgeries: Surgical HX of: Tonsilectomy & Adenoidectomy Abdominal Surgeries: Surgical HX of: Appendectomy, Cholecystectomy, EGD Reproductive Surgeries: Surgical HX of;: Hysterectomy Orthopedic Surgeries: Surgical HX of;: Orthopedic Surgery (torn labien on right shoulder) - Family History Family History: Reports;: Family Diabetes (Maternal grandmother, both parents, siblings), Family Heart Disease (Grandfather), Family Hypertension (parents), Family Stroke (stroke, mother, grandmother) - Social History Smoking Status: Former smoker (Reports that she quit in 1986) Frequency of Alcohol Use: None Type of Drug Use: None Cardiology Physical Exam - Constitutional Vitals: Vital Signs Temp Pulse Resp BP Pulse Ox 97.2 F L 65 18 104/57 94 L 08/31/16 04:00 08/31/16 04:00 08/31/16 04:00 08/31/16 04:00 08/31/16 04:00 Intake and Output 08/30/16 08/31/16 08/31/16 22:59 06:59 14:59 Output Total 225 / 225 Balance -225 / -225 Output: Urine 225 / 225 Other: Voiding Method Toilet # Voids 3 Weight 166 lb General appearance: no acute distress, over weight - Head Head exam: Present: normal inspection, normocephalic, atraumatic - Eye Pupils: Present: YODIT. Absent: constricted, dilated, fixed, irregular, unequal - Neck Neck exam: Present: normal inspection. Absent: lymphadenopathy, tenderness, thyromegaly - Respiratory Respiratory exam: Present: clear to auscultation bilaterally. Absent: accessory muscle use, chest wall tenderness, rales, rhonchi, stridor, wheezes - Cardiovascular Cardiovascular exam: Present: regular rate and rhythm, systolic murmur. Absent : carotid bruit, gallop, rubs - GI/Abdominal GI/Abdominal exam: Present: normal bowel sounds, soft. Absent: distended, firm , mass, tenderness - Extremities Exam Extremities exam: Present: normal inspection, normal capillary refill, other ( Normal upper and lower extremity pulses). Absent: calf tenderness, edema - Neurological Exam Neurological exam: Present: alert, oriented X3, normal gait - Psychiatric Psychiatric exam: Present: normal affect, normal mood. Absent: agitated, anxious, depressed - Skin Skin exam: Present: normal color, warm, dry Result/EKG - Labs CBC & BMP: 08/31/16 02:10 08/31/16 02:10 Lab Results: I have reviewed the past 24 hour labs Labs: Laboratory Results - last 24 hr 08/30/16 08/31/16 08/31/16 23:15 02:10 02:10 WBC 12.5 H RBC 4.64 Hgb 13.0 Hct 40.5 MCV 87.3 MCH 28 MCHC 32.1 RDW 14.9 Plt Count 308 D MPV 13.1 H Neut % (Auto) 46.6 Lymph % (Auto) 42.4 [place] % (Auto) 7.5 Eos % (Auto) 2.9 Baso % (Auto) 0.4 Neut # (Auto) 5.8 Lymph # (Auto) 5.3 H [place] # (Auto) 0.9 H Eos # (Auto) 0.4 Baso # (Auto) 0.1 Immature Gran % 0.2 Nucleated RBC % 0.0 Immature Gran # 0.02 Nucleated RBCs # 0.00 Sodium Potassium Chloride Carbon Dioxide Anion Gap BUN Creatinine GFR Calculation BUN/Creatinine Ratio Glucose Calculated Osmolality Calcium Magnesium Total Bilirubin AST ALT Alkaline Phosphatase Troponin I < 0.015 B-Natriuretic Peptide Total Protein Albumin Globulin Albumin/Globulin Ratio Triglycerides Cholesterol LDL Cholesterol VLDL Cholesterol HDL Cholesterol Heart Disease Risk Ratio Free T4 1.27 TSH 3rd Generation 08/31/16 08/31/16 02:10 02:10 WBC RBC Hgb Hct MCV MCH MCHC RDW Plt Count MPV Neut % (Auto) Lymph % (Auto) [place] % (Auto) Eos % (Auto) Baso % (Auto) Neut # (Auto) Lymph # (Auto) [place] # (Auto) Eos # (Auto) Baso # (Auto) Immature Gran % Nucleated RBC % Immature Gran # Nucleated RBCs # Sodium 142 Potassium 4.6 Chloride 106 Carbon Dioxide 24 Anion Gap 16.6 H BUN 16 Creatinine 0.80 GFR Calculation 84 BUN/Creatinine Ratio 20.00 Glucose 121 H Calculated Osmolality 284.1 Calcium 9.3 Magnesium 2.0 Total Bilirubin 0.90 AST 23 ALT 33 Alkaline Phosphatase 110 Troponin I B-Natriuretic Peptide < 2 L Total Protein 7.4 Albumin 4.0 Globulin 3.4 Albumin/Globulin Ratio 1.1 Triglycerides 117 Cholesterol 202 H LDL Cholesterol 128.0 VLDL Cholesterol 23.4 HDL Cholesterol 48 Heart Disease Risk Ratio 4.21 Free T4 TSH 3rd Generation 2.850 - EKG EKG results: interpreted by me Maximiliano Jackson Attila, MD, personally performed the services described in this documentation, ascribed by Rhiannon Calvillo RN in my presence, and it is both accurate and complete 141 .
[2016-08-31] MEDS: TRIAMTERENE/HCTZ 37.5-25 MG CAPSULE PO SCH (12:56)
[2016-08-31] MEDS: LOSARTAN 25 MG TABLET PO SCH (12:57)
[2016-08-31] MEDS: METOPROLOL TARTRATE 25 MG TABLET PO SCH ×2 (12:57→21:06)
[2016-08-31] MEDS: cycloSPORINE OPH EMUL 1 VIAL BOTH EYES SCH ×2 (12:57→21:03)
[2016-08-31] MEDS: metFORMIN 500 MG TABLET PO SCH ×2 (12:57→18:10)
[2016-08-31] MEDS: PANTOPRAZOLE 40 MG TABLET PO SCH ×3 (12:57→20:57)
[2016-08-31] MEDS: ENOXAPARIN 100 MG/ML SYRINGE SUBCUT SCH (13:06)
[2016-08-31] MEDS ORDERED: SIMVASTATIN 40 MG TABLET PO SCH (17:00)
[2016-08-31] MEDS ORDERED: tiZANidine 4 MG TABLET PO SCH (21:00)
[2016-08-31] MEDS: SODIUM CHLORIDE 0.9% 1,000 ML IV SCH (21:06)
[2016-09-01] MEDS: NITROGLYCERIN 2% OINT 1 INCH/GM PACK TOP SCH ×2 (01:15→13:27)
[2016-09-01] MEDS ORDERED: ENOXAPARIN 40 MG/0.4 ML SYRINGE SUBCUT SCH (09:00)
--- NOTE | 2016-09-01 12:26 | Nuclear Medicine Report ---
Exam: Nuclear medicine gastric emptying study Date: September 01, 2016 Comparison: None Reason: Large retained food on EGD, prepyloric ulcer Technique: The patient was orally administered 500 microcuries of technetium 99m sulfur colloid orally in a scrambled egg sandwich. Images of the stomach were then acquired over 236 minutes, and gastric emptying time was calculated. Findings: Linear fit T 1/2 is 175.29 minutes, and raw data T 1/2 is 176.87 minutes. Gastric emptying at 236 minutes is 67% (Normal greater than 90%). Impression: Findings are consistent with delayed gastric emptying. PROCEDURE INTERPRETED AT [facility] DEPARTMENT OF RADIOLOGY Final Report Signed by: Dr. Ayo Bell
[2016-09-01] MEDS: TRIAMTERENE/HCTZ 37.5-25 MG CAPSULE PO SCH (13:28)
[2016-09-01] MEDS: PANTOPRAZOLE 40 MG TABLET PO SCH (13:29)
[2016-09-01] MEDS: METOPROLOL TARTRATE 25 MG TABLET PO SCH (13:29)
[2016-09-01] MEDS: metFORMIN 500 MG TABLET PO SCH (13:29)
[2016-09-01] MEDS: LOSARTAN 25 MG TABLET PO SCH (13:29)
[2016-09-01] MEDS: cycloSPORINE OPH EMUL 1 VIAL BOTH EYES SCH (13:29)
--- NOTE | 2016-09-01 14:09 | Cardiology Progress Note ---
Assessment and Plan (1) Atypical chest pain Status: Acute Assessment and plan: 59-year-old female without known coronary artery disease presents for further evaluation of chest pain. She has a history of diabetes, hyperlipidemia , hypertension, and gastric ulcer. She is also a former smoker, reports that she quit in 1996. Gastric ulcer, delayed gastric emptying. -Mobic was stopped -Will resume ASA 81mg qd when GI issues allow -Blood pressure is well controlled. Continue current regimen -Hyperlipidemia, continue statin. -Has diabetes, sugars are controlled. -Discharge home today if no further inpatient GI workup is needed Current Visit: Yes (2) Hypertension Status: Chronic Current Visit: Yes (3) Hyperlipidemia Status: Chronic Current Visit: Yes (4) Diabetes Status: Chronic Current Visit: Yes (5) Former smoker Status: Chronic Current Visit: Yes Cardiology - PN: Subj Interval history: EGD showed gastric ulcer. Also, esophageal disorder. Delayed gastric emptying. Exam (Progress Note) - Constitutional Vitals: Period Temp Pulse Resp BP Sys/Cook Pulse Ox Last 24 Hr 97.1 F-98.5 F 51-59 16-20 97-109/51-58 95-97 General appearance: over weight - Head Head exam: Present: normal inspection - Eye Eye exam: Absent: conjunctival injection Pupils: Absent: dilated - ENT ENT exam: Present: normal external ear exam - Neck Neck exam: Present: normal inspection - Respiratory Respiratory exam: Present: clear to auscultation bilaterally - Cardiovascular Cardiovascular exam: Present: regular rate and rhythm - GI/Abdominal GI/Abdominal exam: Present: normal bowel sounds - Extremities Exam Extremities exam: Present: normal inspection, normal capillary refill. Absent: edema - Back Exam Back exam: Present: normal inspection - Neurological Exam Neurological exam: Present: alert, oriented X3 - Psychiatric Psychiatric exam: Present: normal affect, normal mood - Skin Skin exam: Present: normal color, warm. Absent: cyanosis Result/EKG - Labs CBC & BMP: 08/31/16 02:10 08/31/16 02:10 Lab Results: I have reviewed the past 24 hour labs - EKG EKG results: interpreted by me
--- NOTE | 2016-09-01 14:36 | Gastrointestinal Progress Note ---
Assessment and Plan (1) Atypical chest pain Status: Acute Current Visit: Yes Gastroenterology - PN: Subj Interval history: Patient feels better with less chest discomfort. She denies abdominal pain or nausea. Gastric emptying scan was delayed. With retained food noted in endoscopy this suggests gastroparesis diagnosis. She really denies much in the way of nausea symptoms recently but has had chronic early satiety. I did discuss low residue diet with her and would try that for now rather than medical therapy with Reglan given side effect profile. Could discharge home today from my standpoint with follow-up with Dr. Polanco in the next 2 or 3 weeks. Exam (Progress Note) - Constitutional Vitals: Period Temp Pulse Resp BP Sys/Cook Pulse Ox Last 24 Hr 97.1 F-98.5 F 51-59 16-20 97-109/51-58 95-97 General appearance: no acute distress - Head Head exam: Present: normocephalic, atraumatic - Eye Eye exam: Present: EOMI. Absent: scleral icterus - Respiratory Respiratory exam: Present: clear to auscultation bilaterally - Cardiovascular Cardiovascular exam: Present: regular rate and rhythm. Absent: gallop, rubs - GI/Abdominal GI/Abdominal exam: Present: normal bowel sounds, soft. Absent: distended, tenderness - Extremities Exam Extremities exam: Absent: calf tenderness, edema - Neurological Exam Neurological exam: Present: alert, oriented X3, CN II-XII intact - Psychiatric Psychiatric exam: Present: normal affect, normal mood - Skin Skin exam: Present: warm, dry Results - Labs CBC & BMP: 08/31/16 02:10 08/31/16 02:10
--- NOTE | 2016-09-01 14:54 | Discharge Summary ---
Hospital Course - Hospital Course Hospital Course: Mr. Hampton is a 51-year-old man, followed by Dr. Parker. History of hypertension, hyperlipidemia, diabetes mellitus. Remote gastric ulcer. He was admitted with epigastric pain, GI evaluation confirmed gastric ulcer and gastroparesis. He was on Mobic, which was stopped. We also held the aspirin. There was no significant anemia. His blood pressure, heart rate, blood sugars are controlled. He will follow-up with Dr. Parker, in [address] Polanco in 2-3 weeks. Once his GI issues improve, the aspirin will need to be resumed. Continue PPI BID for now. FU gastric biopsy results. Diagnosis - Discharge Diagnosis (1) Atypical chest pain Status: Acute (2) Hypertension Status: Chronic (3) Hyperlipidemia Status: Chronic (4) Diabetes Status: Chronic (5) Former smoker Status: Chronic (6) Rizvi's esophagus determined by biopsy Status: Acute (7) Personal history of colonic polyps Status: Acute (8) Esophagitis determined by biopsy Status: Acute Specialty Discharge - Follow Up or Referrals - Speciality Discharge Instructions Gastroenterology Instructions: FU with dr. Polanco in 2-3 weeks Discharge Plan - Discharge Data Disposition: Disch To Home/Self Care Condition at Discharge: Stable Discharge Diet: advance to your usual diet Activity: resume usual activities as tolerated Hygiene: no restrictions Weight Bearing at Discharge: full weight bearing Driving: no restrictions Contact your physician if you experience:: fever over 101, Difficulty voiding, Redness or swelling, Nausea/Vomiting, Shortness of breath, Bleeding, pain uncontrolled by pain medications - Discharge Medications New Metoprolol Tartrate Tab [Lopressor Tab] 25 mg PO BID #60 tablet Continue Triamterene/Hctz 37.5-25 Cap [Dyazide] 1 capsule PO DAILY metFORMIN [Glucophage] 500 mg PO BID W/MEALS Tizanidine HCl 4 mg PO BEDTIME Losartan [Cozaar] 25 mg PO DAILY Simvastatin 40 mg PO DAILY@1700 cycloSPORINE OPH EMUL [Restasis] 1 drop BOTH EYES BID Pantoprazole Tab [Protonix Tab] 40 mg PO BID Black Cohosh 540 mg PO DAILY Discontinued Meloxicam [Mobic] 15 mg PO DAILY W/BREAKFAST Aspirin [Ecotrin] 81 mg PO DAILY - Follow Up or Referral Follow Up: Meena Parker DO [Physician] - 2 Weeks - Forms/Instructions Exam - Constitutional Vitals: Period Temp Pulse Resp BP Sys/Cook Pulse Ox Last 24 Hr 97.1 F-98.5 F 51-62 16-20 97-135/51-72 95-99 General appearance: over weight - Head Head exam: Present: normal inspection - Eye Eye exam: Absent: conjunctival injection Pupils: Absent: dilated - ENT ENT exam: Present: normal external ear exam - Neck Neck exam: Present: normal inspection - Respiratory Respiratory exam: Present: clear to auscultation bilaterally - Cardiovascular Cardiovascular exam: Present: regular rate and rhythm - GI/Abdominal GI/Abdominal exam: Present: normal bowel sounds - Extremities Exam Extremities exam: Present: normal inspection, normal capillary refill. Absent: edema - Back Exam Back exam: Present: normal inspection - Neurological Exam Neurological exam: Present: alert, oriented X3 - Psychiatric Psychiatric exam: Present: normal affect, normal mood - Skin Skin exam: Present: normal color, warm. Absent: cyanosis Discharge Results - Imaging and Cardiology Cardiology Procedure: image reviewed by me, report reviewed by me DS: Provider Date of admission: 08/30/16 22:29 Primary care physician: Kim Montgomery M.D. Attending physician on admission: Wilton Viera MD Consults: 08/30/16 23:27 Consult to Pharmacy [CONS] Routine Reason for Pharmacy Consult: Adjust Meds Renal Funct 08/31/16 07:53 Consult to Physician [CONS] Routine Comment: non cardiac chest pain Consulting Provider: Murphy Polanco 08/31/16 10:04 Consult to Anesthesiology [CONS] Routine Consulting Provider: Reason for Anesthesiology: Pre-op Clearance Discharging clinician: Wilton Viera MD Expected date of discharge: 09/01/16
[2016-09-01 15:00] VITALS: BP 143/65
--- NOTE | 2016-09-03 11:19 | Pathology Report from [facility] ---
ACCESSION # : [id number] PATIENT NAME : Urszula Gonzales ORDERING DR : Murphy Polanco MD CLINICAL HX: Atypical chest pain - History of Rizvi's esophagus POST-OP DX: ? Ulcer SPECIMEN INFO: #1 JONATHAN #2 Esophageal GROSS DESCRIPTION: #1 Received in formalin labeled with the patient's name "URSZULA GONZALES and #1" consists of 1.2 x 0.4 cm aggregate of gunter tissue. Submitted in cassette #1.#2 Received in formalin labeled with the patient's name "URSZULA GONZALES and #2" consists of a 0.4 x 0.3 cm aggregate of gunter tissue. Submitted in cassette #2. DIAGNOSIS FOR URSZULA GONZALES: #1 GASTRIC BIOPSY: Gastric ulcer. Chronic superficial gastritis. H.pylori not seen on special stain.#2 ESOPHAGEAL BIOPSIES : Unremarkable esophageal squamous mucosa. Gastric cardia type mucosa showing chronic superficial gastritis. H.pylori not seen on special stain. Specialized columnar epithelium of Rizvi's mucosa not present. SERVICE DATE: 09/02/2016 REPORT DATE: 09/03/2016 PATHOLOGIST: Jona Greenwood M.D. [facility]
== END 2016-09-01 15:48 | disposition home or self-care (01) | DRG 313 ==
LOC: N.ED 18:28 → N.EDINP 22:29 → N.TELEN 23:03
PROVIDERS: ADMIT Internal Medicine Clinical Cardiac Electrophysiology; ATTEND Internal Medicine Clinical Cardiac Electrophysiology